=== PATIENT | male | born 1980 | race Caucasian/White ===

== ENCOUNTER 2019-12-07 12:29 | Inpatient (IN) | payer BC ==
[~2019-12-07] VITALS: Ht 188 cm; Wt 119.0 kg
[2019-12-07 13:16] LABS: BASOPHILS # (AUTO) 0.04 x10^3/uL (0-0.1); BASOPHILS % (AUTO) 0 % (0-1); EOSINOPHILS # (AUTO) 0.14 x10^3/uL (0-0.4); EOSINOPHILS % (AUTO) 1 % (1-7); LYMPHOCYTES # (AUTO) 0.95 x10^3/uL (1-3.4); LYMPHOCYTES % (AUTO) 8 % (22-44); MD NO; MEAN CORPUSCULAR HEMOGLOBIN 32.9 pg (27.5-34.5); MEAN CORPUSCULAR HGB CONC 34.4 g/dL (33.2-36.2); MEAN CORPUSCULAR VOLUME 95.8 fL (81-97); MEAN PLATELET VOLUME 7.6 fL (7.4-10.4); MONOCYTES # (AUTO) 0.73 x10^3/uL (0.2-0.8); MONOCYTES % (AUTO) 6 % (2-9); NEUTROPHILS # (AUTO) 9.54 x10^3/uL (1.8-6.8); NEUTROPHILS % (AUTO) 84 % (42-75); PLATELET COUNT 215 x10^3/uL (130-400); RED BLOOD COUNT 5.14 x10^6/uL (4.38-5.82); RED CELL DISTRIBUTION WIDTH 13.8 % (9.4-14.8)
[2019-12-07 13:24] LABS: ALBUMIN 4.1 g/dL (3.4-5.0); ANION GAP 8 mmol/L (5-15); CALCIUM 8.7 mg/dL (8.5-10.1); CHLORIDE 103 mmol/L (98-107)
[2019-12-07 13:27] LABS: ALANINE AMINOTRANSFERASE 45 U/L (12-78); ALKALINE PHOSPHATASE 99 U/L (45-117); CREATININE 1.03 mg/dL (0.7-1.3); TOTAL PROTEIN 7.9 g/dL (6.4-8.2)
--- NOTE | 2019-12-07 14:59 | NUR ---
BREAK RN: PT REPORTS EPISGASTRIC ABD PAIN THAT GOES TO LEFT CHEST 10/10 PAIN SINCE LAST NIGHT. CARDIA CMONIOR ON. SINUS SO. VS STABLE. CALL LIGHT IN PLACE.
[2019-12-07] MEDS ORDERED: ONDANSETRON 2MG/ML, 2ML ONE (15:02)
[2019-12-07] MEDS ORDERED: MORPHINE SULFATE 4 MG/ML, 1ML ONE (15:03)
[2019-12-07] MEDS ORDERED: HYDROmorphone 1 MG/ML, 1ML INJ ONE ×4 (15:11→18:07)
[2019-12-07] MEDS: HYDROmorphone 2 MG/ML, 1ML IVPush PRN ×4 (15:13→18:14)
[2019-12-07] MEDS ORDERED: SODIUM CHLORIDE 0.9% 1,000 ML IV ONE (15:14)
[2019-12-07] MEDS ORDERED: AMPH20TA2 PO (15:26)
--- NOTE | 2019-12-07 15:27 | NUR ---
BREAK RN: PT C/O 07/30 EPIGASTRIC ABD PAIN, PT MOVING BACK AND FORTH IN BED. OKAYED TO GIVE MORE PAIN MEDS PER DR TUCKER
[2019-12-07] MEDS ORDERED: MORPHINE SULFATE 4 MG/ML, 1ML IVPush ONE (15:30)
[2019-12-07] MEDS ORDERED: ONDANSETRON 2MG/ML, 2ML IVPush ONE (15:30)
[2019-12-07] MEDS ORDERED: SODIUM CHLORIDE 0.9% 1,000ML IVBOLUS ONE (15:30)
--- NOTE | 2019-12-07 15:31 | NUR ---
REPORT GIVEN TO LILO BALL
--- NOTE | 2019-12-07 15:59 | NUR ---
sitting in bed, pt appears uncomfortable, states pain level is 9/10, per pt "it brought it down for a minute but then it went back up again
--- NOTE | 2019-12-07 16:28 | NUR ---
MEDICATED WITH DILAUDID 1MG IV FOR C/O PAIN 06/30
[2019-12-07] MEDS ORDERED: HYDROmorphone 2 MG/ML, 1ML IVPush PRN (16:30)
[2019-12-07] MEDS ORDERED: SODIUM CHLORIDE FLUSH 10ML SYR IVF PRN (17:00)
[2019-12-07] MEDS ORDERED: LABETALOL 5MG/ML, 20ML IVPush PRN (17:30)
[2019-12-07] MEDS ORDERED: ACETAMINOPHEN 325 MG TABLET PO PRN (17:30)
[2019-12-07] MEDS ORDERED: PROMETHAZINE 25 MG/ML, 1ML IM PRN (17:30)
[2019-12-07] MEDS: HEPARIN 5,000 UNITS/ML, 1ML SQ SCH (17:30)
[2019-12-07 17:46] LABS: CHOLESTEROL, TOTAL 232 mg/dL (140-239); TRIGLYCERIDES 202 mg/dL (50-200); VLDL CHOLESTEROL 40 mg/dL (0-25)
[2019-12-07 17:48] LABS: CHOL/HDL RATIO 3.7; HDL CHOL % 27 % (26-37); HDL CHOLESTEROL (DIRECT) 62 mg/dL (40-60); LDL CHOLESTEROL,CALCULATED 130 mg/dL (54-169); LDL/HDL RATIO 2.1 (0.5-3.0)
--- NOTE | 2019-12-07 18:12 | NUR ---
Pt medicated for 10/10 abd pain per MAR. POC discussed with pt. Pt denies other needs.
--- NOTE | 2019-12-07 18:15 | NUR ---
Pt states that he doesn't want to ride in elevators as he is afraid of them due to having one collapse with him in it. Pt requesting that he be allowed to walk up to his room 422 instead of riding the elevator. Discussed with pt the potential dangers of him walking up four flights of stairs. Pt maintains that he wants to walk up the stairs. Pt able to don and tie up his shoes, ambulatory with steady gait, A&Ox4. Discussed with ER [employer] who states this is ok as long as this RN and an EMT accompanies him up to the room. Pt verbalizes that he is accepting of this arrangement and is ready to go upstairs.
--- NOTE | 2019-12-07 18:20 | NUR ---
Pt ambulatory up to room 422 up the stairs without difficulty, NADN, steady gait. Pt able to position self for comfort in hospital bed in room, denies other needs. Floor staff alerted that pt has arrived.
[2019-12-07] MEDS: LACTATED RINGERS 1,000 ML IV SCH ×2 (19:12→21:26)
[2019-12-07] MEDS: morphine SULFATE 10 MG/ML, 1ML IVPush PRN ×2 (19:27→22:33)
[2019-12-07 19:43] VITALS: BP 173/117
[2019-12-07 20:02] VITALS: BP 173/117
[2019-12-07] MEDS: OXYcodone/APAP 5/325MG TABLET PO PRN (20:04)
[2019-12-07] MEDS: THIAMINE 100MG TABLET PO SCH (21:00)
[2019-12-07 21:10] VITALS: BP 186/124
[2019-12-07] MEDS: ONDANSETRON 2MG/ML, 2ML IVPush PRN (21:20)
[2019-12-07] MEDS: hydrALAzine 20 MG/ML, 1ML IVPush PRN (21:21)
[2019-12-07 22:29] VITALS: BP 177/87
[2019-12-07 23:22] VITALS: BP 176/111
[2019-12-07] MEDS: SODIUM CHLORIDE 0.9% 1,000 ML IV SCH (23:38)
[2019-12-08] MEDS: OXYcodone/APAP 5/325MG TABLET PO PRN ×5 (00:18→19:57)
[2019-12-08 00:30] VITALS: BP 181/113
[2019-12-08] MEDS: HEPARIN 5,000 UNITS/ML, 1ML SQ SCH ×3 (01:30→17:30)
[2019-12-08] MEDS: morphine SULFATE 10 MG/ML, 1ML IVPush PRN ×8 (01:42→23:59)
[2019-12-08 01:43] VITALS: BP 172/107
[2019-12-08] MEDS: hydrALAzine 20 MG/ML, 1ML IVPush PRN (01:49)
[2019-12-08 02:32] VITALS: BP 151/91
[2019-12-08] MEDS: ONDANSETRON 2MG/ML, 2ML IVPush PRN (03:45)
[2019-12-08] MEDS: SODIUM CHLORIDE 0.9% 1,000 ML IV SCH ×2 (06:20→15:35)
[2019-12-08 06:31] LABS: BASOPHILS # (AUTO) 0.02 x10^3/uL (0-0.1); BASOPHILS % (AUTO) 0 % (0-1); EOSINOPHILS # (AUTO) 0.04 x10^3/uL (0-0.4); EOSINOPHILS % (AUTO) 0 % (1-7); LYMPHOCYTES # (AUTO) 0.72 x10^3/uL (1-3.4); LYMPHOCYTES % (AUTO) 6 % (22-44); MD NO; MEAN CORPUSCULAR HEMOGLOBIN 33.2 pg (27.5-34.5); MEAN CORPUSCULAR HGB CONC 34.6 g/dL (33.2-36.2); MEAN CORPUSCULAR VOLUME 95.8 fL (81-97); MEAN PLATELET VOLUME 7.7 fL (7.4-10.4); MONOCYTES # (AUTO) 1.11 x10^3/uL (0.2-0.8); MONOCYTES % (AUTO) 9 % (2-9); NEUTROPHILS # (AUTO) 10.83 x10^3/uL (1.8-6.8); NEUTROPHILS % (AUTO) 85 % (42-75); PLATELET COUNT 190 x10^3/uL (130-400); RED CELL DISTRIBUTION WIDTH 13.6 % (9.4-14.8)
[2019-12-08 06:54] LABS: CHLORIDE 103 mmol/L (98-107)
[2019-12-08 06:59] LABS: ALANINE AMINOTRANSFERASE 36 U/L (12-78); ALBUMIN 3.5 g/dL (3.4-5.0); ALKALINE PHOSPHATASE 85 U/L (45-117); ANION GAP 8 mmol/L (5-15); BILIRUBIN,TOTAL 1.9 mg/dL (0.2-1.0); CALCIUM 8.2 mg/dL (8.5-10.1); CREATININE 0.76 mg/dL (0.7-1.3)
[2019-12-08 08:07] VITALS: BP 143/97
[2019-12-08] MEDS: MULTIVITAMIN 1 TABLET PO SCH (08:31)
[2019-12-08] MEDS: THIAMINE 100MG TABLET PO SCH ×2 (08:31→20:35)
[2019-12-08] MEDS: FOLIC ACID 1 MG TABLET PO SCH (08:31)
[2019-12-08] MEDS ORDERED: MORPHINE SULFATE 4 MG/ML, 1ML ONE ×4 (08:35→18:32)
[2019-12-08] MEDS ORDERED: [UNRECOGNIZED DRUG - REMARK] MC SCH (12:30)
[2019-12-08 13:46] VITALS: BP 158/99
[2019-12-08 18:27] LABS: TROPONIN I < 0.015 ng/mL (0.000-0.045)
[2019-12-08 19:47] VITALS: BP 129/87
[2019-12-08 22:52] LABS: TROPONIN I < 0.015 ng/mL (0.000-0.045)
[2019-12-09] MEDS: OXYcodone/APAP 5/325MG TABLET PO PRN ×5 (00:57→19:56)
[2019-12-09 01:07] VITALS: BP 142/87
[2019-12-09] MEDS: HEPARIN 5,000 UNITS/ML, 1ML SQ SCH ×3 (01:30→17:30)
[2019-12-09 02:36] LABS: TROPONIN I < 0.015 ng/mL (0.000-0.045)
[2019-12-09] MEDS: morphine SULFATE 10 MG/ML, 1ML IVPush PRN ×5 (03:16→21:59)
[2019-12-09] MEDS: SODIUM CHLORIDE 0.9% 1,000 ML IV SCH ×2 (03:16→14:05)
[2019-12-09 06:48] VITALS: BP 131/84
[2019-12-09] MEDS: THIAMINE 100MG TABLET PO SCH ×2 (09:00→19:55)
[2019-12-09] MEDS: MULTIVITAMIN 1 TABLET PO SCH (09:30)
[2019-12-09] MEDS: FOLIC ACID 1 MG TABLET PO SCH (09:30)
[2019-12-09] MEDS ORDERED: MORPHINE SULFATE 4 MG/ML, 1ML ONE ×2 (12:24→18:11)
[2019-12-09 12:48] VITALS: BP 142/90
[2019-12-09 12:59] LABS: BASOPHILS # (AUTO) 0.04 x10^3/uL (0-0.1); BASOPHILS % (AUTO) 0 % (0-1); EOSINOPHILS # (AUTO) 0.17 x10^3/uL (0-0.4); EOSINOPHILS % (AUTO) 2 % (1-7); LYMPHOCYTES # (AUTO) 1.28 x10^3/uL (1-3.4); LYMPHOCYTES % (AUTO) 12 % (22-44); MD NO; MEAN CORPUSCULAR HEMOGLOBIN 33.3 pg (27.5-34.5); MEAN CORPUSCULAR HGB CONC 34.4 g/dL (33.2-36.2); MEAN CORPUSCULAR VOLUME 96.8 fL (81-97); MEAN PLATELET VOLUME 8.5 fL (7.4-10.4); MONOCYTES # (AUTO) 1.26 x10^3/uL (0.2-0.8); MONOCYTES % (AUTO) 12 % (2-9); NEUTROPHILS # (AUTO) 7.84 x10^3/uL (1.8-6.8); NEUTROPHILS % (AUTO) 74 % (42-75); PLATELET COUNT 185 x10^3/uL (130-400); RED BLOOD COUNT 4.63 x10^6/uL (4.38-5.82); RED CELL DISTRIBUTION WIDTH 14.1 % (9.4-14.8)
[2019-12-09 13:13] LABS: CHLORIDE 106 mmol/L (98-107)
[2019-12-09 13:20] LABS: ALANINE AMINOTRANSFERASE 25 U/L (12-78); ALBUMIN 3.3 g/dL (3.4-5.0); ALKALINE PHOSPHATASE 73 U/L (45-117); ANION GAP 8 mmol/L (5-15); BILIRUBIN,TOTAL 2.4 mg/dL (0.2-1.0); CALCIUM 8.2 mg/dL (8.5-10.1); CREATININE 0.92 mg/dL (0.7-1.3); TOTAL PROTEIN 6.7 g/dL (6.4-8.2)
[2019-12-09 19:20] VITALS: BP 121/85
[2019-12-10 00:21] VITALS: BP 121/80
[2019-12-10] MEDS: OXYcodone/APAP 5/325MG TABLET PO PRN ×3 (00:28→10:55)
[2019-12-10] MEDS: HEPARIN 5,000 UNITS/ML, 1ML SQ SCH ×2 (00:28→09:00)
[2019-12-10] MEDS: morphine SULFATE 10 MG/ML, 1ML IVPush PRN (03:57)
[2019-12-10] MEDS: SODIUM CHLORIDE 0.9% 1,000 ML IV SCH (03:58)
[2019-12-10 06:03] LABS: ALBUMIN 2.9 g/dL (3.4-5.0); CHLORIDE 106 mmol/L (98-107)
[2019-12-10 06:09] LABS: ALANINE AMINOTRANSFERASE 21 U/L (12-78); ALKALINE PHOSPHATASE 70 U/L (45-117); ANION GAP 6 mmol/L (5-15); BILIRUBIN,TOTAL 1.2 mg/dL (0.2-1.0); CALCIUM 8.5 mg/dL (8.5-10.1); CREATININE 0.95 mg/dL (0.7-1.3); TOTAL PROTEIN 6.7 g/dL (6.4-8.2)
[2019-12-10 06:18] LABS: BASOPHILS # (AUTO) 0.03 x10^3/uL (0-0.1); BASOPHILS % (AUTO) 1 % (0-1); EOSINOPHILS # (AUTO) 0.36 x10^3/uL (0-0.4); EOSINOPHILS % (AUTO) 6 % (1-7); LYMPHOCYTES % (AUTO) 24 % (22-44); MD NO; MEAN CORPUSCULAR HEMOGLOBIN 33.2 pg (27.5-34.5); MEAN CORPUSCULAR VOLUME 97.5 fL (81-97); MEAN PLATELET VOLUME 7.5 fL (7.4-10.4); MONOCYTES # (AUTO) 0.75 x10^3/uL (0.2-0.8); MONOCYTES % (AUTO) 12 % (2-9); NEUTROPHILS # (AUTO) 3.68 x10^3/uL (1.8-6.8); NEUTROPHILS % (AUTO) 58 % (42-75); PLATELET COUNT 155 x10^3/uL (130-400); RED BLOOD COUNT 4.16 x10^6/uL (4.38-5.82); RED CELL DISTRIBUTION WIDTH 13.5 % (9.4-14.8)
[2019-12-10 06:46] VITALS: BP 110/77
[2019-12-10] MEDS: FOLIC ACID 1 MG TABLET PO SCH (09:23)
[2019-12-10] MEDS: MULTIVITAMIN 1 TABLET PO SCH (09:24)
[2019-12-10] MEDS: THIAMINE 100MG TABLET PO SCH (09:24)
[2019-12-10] MEDS ORDERED: THIA100T67 PO (10:49)
[2019-12-10] MEDS ORDERED: MULT1TAB60 PO (10:49)
[2019-12-10] MEDS ORDERED: FOLI-17 PO (10:49)
[2019-12-10] MEDS ORDERED: OXYcodone/APAP 5/325MG PO (10:49)
== END 2019-12-10 11:16 | disposition home or self-care (01) | DRG 440 ==
LOC: ED 16:35 → EDIP 16:42 → ED 17:14 → 4WST 18:38 → DCLOUNGE 12-10 11:10
PROVIDERS: ADMIT Family Medicine; ATTEND Family Medicine
DX: K85.20 Alcohol induced acute pancreatitis without necrosis or infection (principal); E66.9 Obesity, unspecified; Z68.33 Body mass index [BMI] 33.0-33.9, adult; Z88.5 Allergy status to narcotic agent; Y90.9 Presence of alcohol in blood, level not specified; F10.10 Alcohol abuse, uncomplicated; R73.9 Hyperglycemia, unspecified; Z71.3 Dietary counseling and surveillance
CPT/HCPCS: 36415; 76700; 80053; 80061; 80307; 83036; 83690; 84484; 85025; 93005; 96374; 96375; 96376; 99285; G0378; J1170; J2405; J2550; J0360; J2270; J7030; J7120